=== PATIENT | male | born 1980 | race Hispanic/Latino ===

== ENCOUNTER 2024-01-14 11:23 | Inpatient (IN) | payer OTHER ==
[~2024-01-14] VITALS: Ht 175.3 cm; Wt 106.8 kg
[2024-01-14 12:22] LABS: BASOPHILS # (AUTO) 0.06 K/uL (0.00-0.20); BASOPHILS % (AUTO) 0.7 % (0.0-5.0); EOSINOPHILS # (AUTO) 0.25 K/uL (0.00-0.70); EOSINOPHILS % (AUTO) 2.9 % (0.0-8.0); HEMATOCRIT 42.7 % (42-54); IMMATURE GRANULOCYTE ABSOLUTE 0.02 K/uL (0-1); LYMPHOCYTES # (AUTO) 2.1 K/uL (1.0-4.8); MEAN CORPUSCULAR HEMOGLOBIN 29.8 pg (27.0-33.0); MEAN CORPUSCULAR HGB CONC 34.4 g/dL (32.0-36.0); MEAN CORPUSCULAR VOLUME 86.4 fL (79-99); MONOCYTES # (AUTO) 0.7 K/uL (0.1-1.0); MONOCYTES % (AUTO) 8.5 % (3.0-13.0); NEUTROPHILS # (AUTO) 5.5 K/uL (1.8-7.7); NEUTROPHILS % (AUTO) 63.7 % (40.0-77.0); PLATELET COUNT (AUTO) 200 K/uL (130-400); RED BLOOD CELL COUNT(AUTO) 4.94 MIL/uL (4.50-6.20); RED CELL DISTRIBUTION WIDTH 13.2 % (11.0-15.5); WHITE BLOOD COUNT (AUTO) 8.6 K/uL (4.8-10.8)
[2024-01-14 12:39] LABS: CREATININE 0.8 mg/dL (0.5-1.3); POTASSIUM 3.7 mmol/L (3.5-5.1)
[2024-01-14 12:47] LABS: ALBUMIN 3.5 g/dL (3.5-5.0); BILIRUBIN,TOTAL 0.7 mg/dL (0.2-1.0); TOTAL PROTEIN, SERUM 7.2 g/dL (6.0-8.3)
[2024-01-14 12:48] LABS: INR < 0.93 (0.85-1.15); PARTIAL THROMBOPLASTIN TIME 24.5 SEC (26.3-35.5); PROTHROMBIN TIME 9.9 SEC (9.6-11.6)
[2024-01-14] MEDS: HEPARIN 25,000 UNITS/250ML D5W 250 ML IV STA (13:06)
[2024-01-14] MEDS: HEPARIN 5,000 UNIT VIAL ONE (13:07)
[2024-01-14 13:42] VITALS: TEMP 98.2
[2024-01-14] MEDS: ACETAMINOPHEN 500 MG TABLET PO ONE (13:42)
[2024-01-14] MEDS ORDERED: IOHEXOL-350 50ML VIAL IV ONE ×2 (13:51→14:33)
[2024-01-14] MEDS ORDERED: IOHEXOL 350 MG/ML 100ML INFUS..BTL IV ONE ×2 (13:51→14:33)
[2024-01-14] MEDS ORDERED: GUAIFENESIN-DM 200/20 MG 10 ML PO PRN (14:30)
[2024-01-14] MEDS ORDERED: MAG/ALUM/SIMETH 30 ML UDCUP PO PRN (14:30)
[2024-01-14] MEDS ORDERED: DIPHENHYDRAMINE HCL 25 MG CAPSULE PO PRN (14:30)
[2024-01-14] MEDS ORDERED: ONDANSETRON 4MG INJ IV PRN (14:30)
[2024-01-14] MEDS ORDERED: NITROGLYCERIN 0.4 MG SL TAB SL PRN (14:30)
[2024-01-14] MEDS ORDERED: HYDRALAZINE 20MG/ML VIAL IV PRN (14:30)
[2024-01-14] MEDS ORDERED: LACTULOSE 20 GM/30 ML UDCUP PO PRN (14:30)
[2024-01-14 16:30] VITALS: O2SAT 98
[2024-01-14 17:02] VITALS: BP 141/74; PULSE 70; RESP 17
[2024-01-14] MEDS: ACETAMINOPHEN 325 MG TAB PO PRN (18:14)
[2024-01-14 20:00] VITALS: BP 131/89; PULSE 65; RESP 18; O2SAT 97
[2024-01-14 20:06] LABS: INR 0.99 (0.85-1.15); PROTHROMBIN TIME 10.7 SEC (9.6-11.6)
[2024-01-14 20:07] LABS: PARTIAL THROMBOPLASTIN TIME 58.9 SEC (26.3-35.5)
[2024-01-14] MEDS: FAMOTIDINE 20MG VIAL IV SCH (20:12)
[2024-01-15] VITALS: BP 128/81; PULSE 76; RESP 18
[2024-01-15 00:52] LABS: INR 0.94 (0.85-1.15); PROTHROMBIN TIME 10.2 SEC (9.6-11.6)
[2024-01-15 01:40] LABS: PARTIAL THROMBOPLASTIN TIME 41.4 SEC (26.3-35.5)
[2024-01-15 04:00] VITALS: BP 119/72; PULSE 67; RESP 19
[2024-01-15] MEDS: HEPARIN 25,000 UNITS/250ML D5W 250 ML IV SCH (06:28)
[2024-01-15 06:58] LABS: INR <= 0.93 (0.85-1.15); PROTHROMBIN TIME 10.1 SEC (9.6-11.6)
[2024-01-15 08:00] VITALS: BP 129/78; PULSE 69; RESP 17; O2SAT 97
[2024-01-15] MEDS: HEPARIN 5,000 UNIT VIAL IV PRN (08:07)
[2024-01-15 12:00] VITALS: BP 136/88; PULSE 76; RESP 16
[2024-01-15 14:40] LABS: INR 1.01 (0.85-1.15); PROTHROMBIN TIME 10.9 SEC (9.6-11.6)
[2024-01-15 15:00] LABS: PARTIAL THROMBOPLASTIN TIME 115.5 SEC (26.3-35.5)
[2024-01-15 16:00] VITALS: BP_SYST 123; BP_SYST 131; BP_DIAS 62; BP_DIAS 87; PULSE 72; PULSE 83; RESP 16; RESP 17
[2024-01-15] MEDS: MORPHINE 2 MG SYG IV PRN (18:03)
[2024-01-15 19:48] LABS: INR 0.96 (0.85-1.15); PROTHROMBIN TIME 10.4 SEC (9.6-11.6)
[2024-01-15 19:49] LABS: PARTIAL THROMBOPLASTIN TIME 44.7 SEC (26.3-35.5)
[2024-01-15 20:00] VITALS: BP 130/74; PULSE 74; RESP 20; O2SAT 98
[2024-01-16] VITALS (8 sets, daily range): BP systolic 115–133; BP diastolic 55–82; PULSE 66–87; RESP 18–20; O2SAT 98
[2024-01-16 00:47] LABS: INR 0.96 (0.85-1.15); PROTHROMBIN TIME 10.4 SEC (9.6-11.6)
[2024-01-16 00:49] LABS: PARTIAL THROMBOPLASTIN TIME 57.8 SEC (26.3-35.5)
[2024-01-16 05:01] LABS: INR 0.98 (0.85-1.15); PROTHROMBIN TIME 10.6 SEC (9.6-11.6)
[2024-01-16 07:58] LABS: INR 0.99 (0.85-1.15); PROTHROMBIN TIME 10.7 SEC (9.6-11.6)
[2024-01-16 07:59] LABS: PARTIAL THROMBOPLASTIN TIME 60.8 SEC (26.3-35.5)
[2024-01-17] VITALS: BP 125/80; PULSE 68; RESP 20
[2024-01-17 04:00] VITALS: BP 122/77; PULSE 67; RESP 20
[2024-01-17 08:00] VITALS: BP 142/72; PULSE 75; RESP 18; O2SAT 95
[2024-01-17] MEDS ORDERED: FAMO20TA8 PO (11:35)
[2024-01-17 12:00] VITALS: BP 137/85; PULSE 78; RESP 19
[2024-01-17 16:45] VITALS: BP 127/79; PULSE 68; RESP 19
[2024-01-17 20:00] VITALS: BP 135/82; PULSE 73; RESP 20
[2024-01-18 00:08] VITALS: BP 128/77; PULSE 68; RESP 18
[2024-01-18 04:00] VITALS: BP 118/72; PULSE 64; RESP 18
[2024-01-18 08:15] VITALS: BP 130/92; PULSE 79; RESP 16
[2024-01-18] MEDS: MORPHINE 4 MG SYG IV PRN (09:31)
[2024-01-18 11:15] VITALS: BP 110/60; PULSE 64; RESP 18
[2024-01-18 16:13] VITALS: BP 125/83; PULSE 88; RESP 53
[2024-01-18] MEDS: APIXABAN 5 MG TABLET PO SCH (19:55)
[2024-01-18 20:00] VITALS: BP 120/72; PULSE 71; RESP 18; O2SAT 95
[2024-01-19] VITALS: BP 113/69; PULSE 68; RESP 17
[2024-01-19 04:00] VITALS: BP 129/81; PULSE 69; RESP 18
[2024-01-19 04:58] LABS: MEAN CORPUSCULAR HEMOGLOBIN 29.3 pg (27.0-33.0); MEAN CORPUSCULAR HGB CONC 33.3 g/dL (32.0-36.0); MEAN CORPUSCULAR VOLUME 88.1 fL (79-99); RED BLOOD CELL COUNT(AUTO) 5.22 MIL/uL (4.50-6.20); RED CELL DISTRIBUTION WIDTH 12.8 % (11.0-15.5); WHITE BLOOD COUNT (AUTO) 7.7 K/uL (4.8-10.8)
[2024-01-19 05:18] LABS: CREATININE 1.1 mg/dL (0.5-1.3); POTASSIUM 4.6 mmol/L (3.5-5.1)
[2024-01-19 08:00] VITALS: O2SAT 95
[2024-01-19 08:05] VITALS: BP 107/55; PULSE 83; RESP 19
[2024-01-19] MEDS ORDERED: APIX5TAB PO (09:22)
[2024-01-19] MEDS ORDERED: ZIPRASIDONE MESYLATE 20 MG/VIAL IM ONE (10:30)
[2024-01-19 11:11] VITALS: BP 118/68; PULSE 86; RESP 18
[2024-01-20 18:10] LABS: PROTEIN C FUNCTIONAL 121 % (73-180)
== END 2024-01-19 13:40 | disposition home or self-care (01) | DRG 301 ==
LOC: EDH 11:23 → EDHIP 14:21 → 4BH 16:20
PROVIDERS: ADMIT Hospitalist; ATTEND Hospitalist
DX: I82.412 Acute embolism and thrombosis of left femoral vein (principal); I82.432 Acute embolism and thrombosis of left popliteal vein; I82.442 Acute embolism and thrombosis of left tibial vein; R73.03 Prediabetes; E66.9 Obesity, unspecified; Z56.0 Unemployment, unspecified; Z59.7 Insufficient social insurance and welfare support; Z68.34 Body mass index [BMI] 34.0-34.9, adult
CPT/HCPCS: 36415; 75635; 80048; 80053; 81241; 85025; 85027; 85300; 85302; 85303; 85306; 85610; 85730; 93971; 96365; 96375; G0378; J1644; J2270; J3486; J3490; Q9967